=== PATIENT | male | born 1985 | race African-American/Black ===

== ENCOUNTER 2025-07-30 13:16 | Emergency (ER) | payer MEDICAID ==
[~2025-07-30] VITALS: Ht 175.3 cm; Wt 82.0 kg
[2025-07-30 13:30] VITALS: O2SAT 99
[2025-07-30] MEDS ORDERED: SULF1TAB48 MT (15:02)
[2025-07-30] MEDS ORDERED: IBUP-1455 MT (15:02)
[2025-07-30] MEDS: IBUPROFEN 600MG TABLET PO ONE (15:16)
[2025-07-30 15:23] VITALS: BP 100/61; PULSE 70; RESP 15; TEMP 36.1; O2SAT 99
== END 2025-07-30 15:24 | disposition home or self-care (01) ==
LOC: ER 13:16
DX: L03.012 Cellulitis of left finger (principal); F31.9 Bipolar disorder, unspecified
CPT/HCPCS: 99283